=== PATIENT | male | born 1945 | race Caucasian/White ===

== ENCOUNTER → 2022-09-02 | Outpatient (CLI) | payer MEDICARE ==
[2022-09-02 10:59] LABS: PROTHROMBIN TIME 20.5 SECONDS (9.0-12.0)
== END ==
LOC: LAB 09:49
DX: I48.91 Unspecified atrial fibrillation (principal)

== ENCOUNTER → 2022-09-05 | Outpatient (CLI) | payer MEDICARE | LOC: LAB 11:07 | DX: I48.91 Unspecified atrial fibrillation (principal) ==